=== PATIENT | male | born 1990 | race Caucasian/White ===

== ENCOUNTER 2018-07-23 12:47 | Emergency (ER) | payer SELFPAY ==
[~2018-07-23] VITALS: Ht 170.2 cm; Wt 97.5 kg
[2018-07-23 13:04] VITALS: Ht 170.2 cm; Wt 97.5 kg
[2018-07-23 15:00] VITALS: BP 130/60
== END 2018-07-23 15:00 | disposition home or self-care (01) ==
LOC: ED 12:47
DX: Z11.3 Encounter for screening for infections with a predominantly sexual mode of transmission (principal)
CPT/HCPCS: 87491; 87591; J0696